=== PATIENT | male | born 2000 ===

== ENCOUNTER 2021-12-04 18:57 | Outpatient (REF) | payer OTHER, SELFPAY ==
[2021-12-04 14:44] LABS: Hemoglobin A1C 5.9 % (<5.7)
[2021-12-04 14:48] LABS: Calculated LDL 113 mg/dL (<100); Cholesterol 170 mg/dL (<200); Glucose 109 mg/dL (74-106); HDL Cholesterol 42 mg/dL (40-60); Triglyceride 78 mg/dL (<150)
== END 2021-12-04 18:58 | disposition home or self-care (01) ==
LOC: NCHCN 18:57
PROVIDERS: Visit Provider Nurse Practitioner Family
DX: Z00.00 Encounter for general adult medical examination without abnormal findings (principal); E66.9 Obesity, unspecified; Z13.220 Encounter for screening for lipoid disorders; Z13.1 Encounter for screening for diabetes mellitus
CPT/HCPCS: 80061; 82947; 83036